=== PATIENT | male | born 1950 | race Caucasian/White ===

== ENCOUNTER → 2018-09-11 | Outpatient (CLI) | payer MEDICARE, OTHER ==
[~2018-09-11] MED LIST: ADVAIR 100-501 EACH INH; ALEVE220 M1; ALEVE220 M1 PO; ALLEGRA ALLERG180 MG PO; AMBIEN 5 MG TABL5 M1 PO; ASPIR 8181 MG PO; BELBUCA150 MCG BC; CELEBREX 200 M200 M1 PO; CELEXA 20 MG TA20 M1; CELEXA 20 MG TA20 MG PO; CENTRUM SILVER1 EAC1; CENTRUM SILVER1 EAC4 PO; COZAAR 50 MG TA50 M2 PO; DILAUDID 2 MG TA2 MG; DILAUDID 2 MG TA2 MG PO; FENOFIBRATE160 MG PO; FISH OIL 1,001000 M2 PO; FISHOIL; FLEXERIL PO; FLOMAX; HYDROCODON-ACE1 EAC8; IBUPROFEN 800800 M1 PO; INDOMETHACIN 2525 MG PO; LOVASTAT40 PO; MEDROLDOSEPACK PO; MIRALAX17 GM PO; MOVANTIK25 MG PO; NEURONTIN 300300 M1 PO; NEURONTIN600 MG PO; NORCO 5-325 TA1 EACH PO; OXYCODONE HCL15 MG PO; PATANOL5 ML OPHTHALMIC; PERCOCET 10-321 EACH PO; PRINZIDE 20-121 EACH; SENNA8.6 MG PO; SINGULAIR4 M1 PO; TRILIPIX135 MG PO; ULTRAM 50MG TAB50 MG PO; VITAMIN D1000 UNI1 PO; WELLBUTRIN SR150 MG PO; XARELTO10 MG PO; astelin
== END ==
LOC: M.RAD 09:54
DX: M16.0 Bilateral primary osteoarthritis of hip (principal); M51.36 Other intervertebral disc degeneration, lumbar region

== ENCOUNTER → 2019-06-25 | Outpatient (CLI) | payer OTHER ==
--- NOTE | 2019-06-29 18:22 | SLEEP ---
[address] [address] SLEEP STUDY REPORT Name: RITESH MARLEY [id number] Admission: 06/25/19 Attend Phys: Hamlet Chaves Discharge: Date of : 54 Report #: [id number] THIS REPORT FOR: //name// CC: RACHEL Clinton This study has been reviewed in its entirety by a board certified sleep specialist DATE OF SERVICE: 06/25/2019 SLEEP STUDY ATTENDING PHYSICIAN: Rachel Reese DO The patient is 68 years old who weighs 275 pounds with a BMI of 36.3. The patient underwent split night study performed at [facility]. During the night study, the patient spent 456 minutes in bed and slept for 254 minutes with a low sleep efficiency of 55%. Sleep latency was 79 minutes with an absent REM sleep. Overall, sleep architecture showed normal stage 1 sleep, increased stage 2 sleep, normal slow wave and absent REM sleep. During the initial diagnostic portion of the study, the patient slept for 129 minutes. During that time, the patient had 2 obstructive apneas, no mixed or central apneas and 37 hypopneas. The patient's apnea hypopnea index was 18 per hour. REM sleep was not observed. The patient's supine index was 33.9 per hour. EKG monitoring revealed an average heart rate of 71 beats per minute. No sustained arrhythmias observed. PLMS were seen at an index of 106 per hour and 7 per hour caused EEG arousals. However, while the patient on CPAP, the patient's PLM index reduced to 28 per hour with an arousal index of 1.9 per hour. Nocturnal oximetry study revealed an average oxygen saturation of 91% with lowest of 86%. 25 minutes were spent in oxygen saturation of less than 89%. The patient met the criteria for CPAP initiation. It was started at 7 cm water and titrated up to 12 cm water. At the final pressure, the patient slept for 87 minutes. The patient had a lateral sleep and no REM sleep. No supine sleep. The patient's AHI was reduced to 0 per hour and oxygen saturation remained above 91%. [place] [address] SLEEP STUDY REPORT Name: RITESH MARLEY LIZETT Room: [facility]#: [id number] Admission: 06/25/19 Attend Phys: Hamlet Chaves Discharge: Date of : 54 Report #: [id number] IMPRESSION: 1. Moderate sleep apnea-hypopnea syndrome with worsening during supine sleep. REM sleep was not seen during the night of study, which can underestimate the severity of sleep apnea. 2. Nocturnal hypoxia secondary to obstructive sleep apnea, but resolved with CPAP. 3. Severe periodic limb movements, which did significantly improve from an index of 106 per hour to 28 per hour while the patient slept on CPAP. This does not need to be treated unless the patient has symptoms of restless legs during the day. 4. Reduced sleep efficiency of 55%, resulting from sleep onset and sleep maintenance insomnia. RECOMMENDATIONS: 1. CPAP at 12 cm water completely eliminated the patient's sleep apnea and should be used on a nightly basis. 2. Follow up in 4-6 weeks to assess compliance with CPAP and to document clinical improvement. 3. Weight loss is strongly advised. 4. Avoid [employer] depressants. 5. Cautioned regarding driving until symptoms of sleep apnea resolve with the use of CPAP. 6. If patient's insomnia persists despite effective use of CPAP then it should be treated according to the etiology. 7. Avoid supine sleep. <ELECTRONICALLY SIGNED> By: Hiren Rosales MD 06/29/19 1822 [id number] Rosales MD /nt
== END ==
LOC: M.SLEEPLAB 19:41
DX: G47.33 Obstructive sleep apnea (adult) (pediatric) (principal); G47.30 Sleep apnea, unspecified; R09.02 Hypoxemia

== ENCOUNTER → 2020-02-24 | Outpatient (CLI) | payer OTHER | LOC: M.LAB 13:33 | DX: Z20.828 Contact with and (suspected) exposure to other viral communicable diseases (principal) ==

== ENCOUNTER → 2020-04-06 | Outpatient (CLI) | payer OTHER | LOC: M.MRI 08:02 | DX: M51.27 Other intervertebral disc displacement, lumbosacral region (principal); M47.815 Spondylosis without myelopathy or radiculopathy, thoracolumbar region; M48.062 Spinal stenosis, lumbar region with neurogenic claudication; M25.78 Osteophyte, vertebrae ==